=== PATIENT | female | born 1965 | race Caucasian/White ===

== ENCOUNTER 2016-07-12 14:57 | Emergency (ER) | payer BC ==
[2016-07-12] MEDS ORDERED: IOPAMIDOL 370 (76%) 100 ML VIAL IV ONE (14:58)
[2016-07-12 16:07] LABS: ABSOLUTE NEUTROPHIL COUNT 5.5 K/mm3 (1.8-7.7); BASO # 0.1 K/mm3 (0.0-0.2); BASO % 1.2 % (0.2-1.0); EOS # 0.2 (0.0-0.5); EOS % 1.8 % (0.9-2.9); HEMATOCRIT 37.1 % (37.0-47.0); HEMOGLOBIN 11.8 gm/l (12.0-16.0); IMM NEUT% 0.3 % (0-1); LYMPH # 2.8 (1.0-4.8); LYMPH % 30.7 % (15-45); MEAN CELL VOLUME 93.9 fl (81.0-99.0); MEAN CORPUSCULAR HEMOGLOBIN 29.9 pg (27.0-31.0); MEAN CORPUSCULAR HGB CONC 31.8 g/dl (33.0-37.0); MEAN PLATELET VOLUME 10.8 fl (7.4-10.4); MONO # 0.5 (0.0-0.8); MONO % 5.1 % (4-12); NEUT % 60.9 % (43-75); PLATELET COUNT 424 K/mm3 (130-400); RED CELL DISTRIBUTION WIDTH 14.8 % (11.5-14.5)
[2016-07-12 16:26] LABS: ALB/GLOB RATIO 1.6 (>1.0); ALBUMIN 4.4 gm/dL (3.5-5.7); CALCIUM 9.3 mg/dL (8.6-10.3); MAGNESIUM 2.3 mg/dL (1.9-2.7)
--- NOTE | 2016-07-12 16:27 | CT ---
HEAD W/O CON History: Headache after passing out for 8 minutes. Comparison: 12/13/2012. Procedure: 1 mm axial images were obtained through the head from the vertex to the base of the skull without intravenous contrast. Stacked reconstructed 5 mm images were then obtained in the axial, coronal and sagittal planes. Findings: The lateral ventricles are of normal size and shape without evidence of hydrocephalus. No evidence of midline shift is seen. No mass or mass-effect is observed. No evidence of intra- or extra-axial fluid collections or hemorrhage is identified. The cho/white differentiation is within expected. The basilar cisterns remain uneffaced. The posterior fossa structures are unremarkable. No acute osseous abnormalities are identified. Impression: 1. A negative unenhanced CT scan of the brain.
--- NOTE | 2016-07-12 16:32 | CT ---
CTA HEAD W/ POST PROCESS History: Passed out 8 minutes while sitting at her desk, now with headache. Comparison: None. Procedure: 1 mm axial images were obtained through the head following the administration of 80cc's of Isovue-370 intravenous contrast. Stacked reconstructed 3 mm images were then photographed in the axial, coronal and sagittal planes. 3-D reconstructed MIP images were also performed on the scanner workstation. Findings: Images demonstrate a somewhat tortuous course of the intracranial carotid arteries. The caliber appears to be appropriate however with no stenosis or aneurysm visualized. The middle and anterior cerebral branches are appropriate. There is no pruning of the distal middle cerebral artery branches identified. The posterior circulation demonstrates codominant vertebral arteries. The basilar artery is of normal caliber. There is no basilar tip aneurysm observed. The posterior cerebral vessels are unremarkable. The posterior communicating arteries are either hypoplastic or absent. Impression: 1. A negative CT angiogram of the head.
--- NOTE | 2016-07-12 16:38 | CT ---
CTA CAROTID W/ POST PROCESS History: Passed out for 8 minutes while sitting at her desk. Current headache. Comparison: None. Procedure: 1 mm axial images were obtained through the neck following the administration of 80cc's of Isovue-370 intravenous contrast. Stacked reconstructed 3 mm images were then photographed in the axial, coronal and sagittal planes. 3-D reconstructed MIP images were also performed on the scanner workstation. Findings: Images demonstrate no significant mediastinal adenopathy. The visualized lung parenchyma is unremarkable. There are bilateral thyroid nodules suggested with 2 observed within the right thyroid lobe measuring 4 and 6 mm in size respectively. A 6 mm left thyroid nodule is also visualized. No significant cervical chain adenopathy is visualized. Evaluation of the vascular structures demonstrates a normal course and caliber of the left subclavian artery. The left common carotid artery demonstrates a normal course and caliber as well. There is no significant atherosclerotic disease observed. The internal and external carotid branches are widely patent. The innominate artery and right subclavian artery are appropriate. The right common carotid artery demonstrates a normal course and caliber. The internal/external carotid branches are widely patent. There is tortuosity noted of the distal aspects of both internal carotid arteries. The vertebral arteries are codominant. The course and caliber is appropriate with no discrete stenosis visualized. Impression: 1. Subcentimeter bilateral thyroid nodules. 2. An otherwise negative CT angiogram of the neck.
[2016-07-12] MEDS ORDERED: ACETAMINOPHEN 500 MG TABLET ONE (16:44)
[2016-07-12] MEDS ORDERED: METHOCARBAMOL 750 MG TABLET ONE (16:44)
[2016-07-12 16:54] LABS: PH,URINE 6.5 (5.0-8.0); URINE APPEARANCE CLEAR; URINE BILIRUBIN NEGATIVE (NEGATIVE); URINE BLOOD NEGATIVE (NEGATIVE); URINE COLOR YELLOW; URINE GLUCOSE (UA) NEGATIVE (NEGATIVE); URINE LEUKOCYTE ESTERASE NEGATIVE (NEGATIVE); URINE NITRITE NEGATIVE (NEGATIVE); URINE PROTEIN NEGATIVE (NEGATIVE); URINE UROBILINOGEN NORMAL (0-1 mg/dl)
--- NOTE | 2016-07-12 16:56 | RAD ---
History: Headache. Comparison: None. Technique: 2 views Findings: The soft tissue and bony structures are unremarkable. The heart size is appropriate. No infiltrate, effusion or pneumothorax is observed. The hilar and mediastinal structures are normal. Impression: 1. A negative 2 view chest
[2016-07-12] MEDS ORDERED: SODIUM CHLORIDE 0.9% 1,000 ML ONE (17:05)
[2016-07-12] MEDS ORDERED: METOCLOPRAMIDE HCL 5 MG/ML 2ML VIAL ONE (17:05)
[2016-07-12] MEDS ORDERED: KETOROLAC TROMETHAMINE 30 MG/ML 1 ML VIAL ONE (17:06)
[2016-07-12] MEDS ORDERED: DIPHENHYDRAMINE HCL 50 MG/1 ML VIAL ONE (17:06)
== END 2016-07-12 17:40 | disposition home or self-care (01) ==
LOC: ED 14:57
DX: R55 Syncope and collapse (principal); R51 Headache; F17.210 Nicotine dependence, cigarettes, uncomplicated
CPT/HCPCS: 84703; 85025; 80053; 83735; 81003; 84484; 71020; 70450; 70496; 70498; 96375 ×2; 99284 ×2; 96374; 93005; J1200; J2765; A9270 ×2; J1885; J7030; Q9967